=== PATIENT | female | born 1965 | race Two or more races ===

== ENCOUNTER → 2016-04-22 | Outpatient (CLI) | payer BC, OTHER | LOC: OD 15:46 | PROVIDERS: ATTEND Nurse Practitioner | DX: M25.532 Pain in left wrist (principal) ==

== ENCOUNTER 2017-04-28 15:20 | Day surgery (SDC) | payer BC, OTHER ==
[2017-04-28] MEDS ORDERED: NALOXONE HCL INJ/PF 0.4 MG/1 ML SDV ONE (15:35)
[2017-04-28] MEDS ORDERED: GLUCAGON,HUMAN RECOMB 1 MG INJ ONE (15:36)
[2017-04-28] MEDS ORDERED: FLUMAZENIL INJ 0.5 MG/5 ML VIAL ONE (15:36)
[2017-04-28] MEDS ORDERED: EPINEPHRINE INJ 1 MG/10 ML DISP.SYRIN ONE (15:36)
[2017-04-28] MEDS ORDERED: FENTANYL CITRATE INJ/PF 100 MCG/2 ML AMPUL ONE (15:36)
[2017-04-28] MEDS: MIDAZOLAM 2 MG/2 ML INJ ONE ×2 (16:52→16:56)
[2017-04-28 18:09] VITALS: BP 122/67
--- NOTE | 2017-04-28 18:13 | OPERATIVE REPORT E ---
Operative Report NAME: CHRISTOPHER PAN : [id number] AGE: 52Y DATE OF SURGERY: 04/28/2017 ROOM: PREOPERATIVE DIAGNOSIS: COLON CANCER SCREENING. POSTOPERATIVE DIAGNOSIS: POLYPS IN THE DESCENDING COLON AND THE RECTUM. OPERATION: Colonoscopy with biopsy and polypectomy. SURGEON: DANUTA BYRD M.D. MEDICATION: Versed 3 mg and fentanyl 100 mcg. TISSUE REMOVED OR ALTERED: Colon polyps. PROCEDURE: After informed consent obtained from patient conscious sedation was achieved. The colonoscope was inserted into the rectum and advanced to the cecum. The appendiceal orifice and terminal ileum were both identified. The cecal mucosa was normal. The ascending and transverse colon mucosa were normal. A 2 mm polyp was removed from the descending colon with the biopsy forceps and 6 mm from the proximal rectum with a hot snare. Some hemorrhoids were also noted. Patient tolerated the procedure well. PLAN: Await pathology. Repeat colonoscopy in 5 years. DICTATING PHYSICIAN: DANUTA BYRD M.D. [id number] PHY#: [id number] ID: [id number] JOB#: [id number] ACCT: [id number] cc:Phill RAGSDALE M.D. >
== END 2017-04-28 18:10 | disposition home or self-care (01) ==
LOC: END 15:20
PROVIDERS: ATTEND Internal Medicine Gastroenterology
PROC: 0DBM8ZX Excision of Descending Colon, Via Natural or Artificial Opening Endoscopic, Diagnostic (ICD-10-PCS; principal; 2017-04-28 15:30)
PROC: 0DBP8ZX Excision of Rectum, Via Natural or Artificial Opening Endoscopic, Diagnostic (ICD-10-PCS; 2017-04-28 15:30)
DX: D12.4 Benign neoplasm of descending colon (principal); K63.5 Polyp of colon; E11.9 Type 2 diabetes mellitus without complications; E78.5 Hyperlipidemia, unspecified; E89.0 Postprocedural hypothyroidism; E78.00 Pure hypercholesterolemia, unspecified; Z79.899 Other long term (current) drug therapy; Z79.84 Long term (current) use of oral hypoglycemic drugs; Z79.1 Long term (current) use of non-steroidal anti-inflammatories (NSAID); Z79.4 Long term (current) use of insulin; Z88.6 Allergy status to analgesic agent
CPT/HCPCS: 45380; 45385; 82962; 88305 ×2; J2250; J3010; J0171; J1610; J2310; J3490